=== PATIENT | male | born 1960 | race Caucasian/White ===

== ENCOUNTER 2017-06-17 14:56 | Inpatient (IN) | payer MEDICAID ==
[2017-06-17] MEDS ORDERED: HEPARIN 1000 UNITS/ML 10 ML INJ IV (15:03)
[2017-06-17] MEDS ORDERED: HEPARIN 25000 UNITS/250 ML 250 ML IV (15:03)
[2017-06-17 15:11] LABS: ADD MAN DIFF? NO
[2017-06-17] MEDS: ONDANSETRON 4 MG INJ IV (15:13)
[2017-06-17] MEDS: NITROGLYCERIN (SL) 0.4 MG TAB SL (15:13)
[2017-06-17] MEDS: morphine 4 MG/ML VIAL IV ×2 (15:13→15:30)
[2017-06-17] MEDS: HEPARIN 25000 UNITS/250 ML 250 ML IV (15:14)
[2017-06-17 15:15] LABS: BASOPHIL # 0.1 10^3/ul (0.0-0.1); BASOPHILS % 0.6 % (0.0-2.0); EOSINOPHILS # 0.1 10^3/ul (0.0-0.5); EOSINOPHILS % 0.8 % (0.0-7.0); HEMATOCRIT 52.5 % (42.0-52.0); HEMOGLOBIN 17.1 g/dl (14.0-18.0); LYMPHOCYTES # 3.2 10^3/ul (0.8-2.9); LYMPHOCYTES % 31.2 % (15.0-51.0); MEAN CORPUSCULAR HEMOGLOBIN 29.4 pg (29.0-33.0); MEAN CORPUSCULAR HGB CONC 32.6 g/dl (32.0-37.0); MEAN CORPUSCULAR VOLUME 90.4 fl (82.0-101.0); MEAN PLATELET VOLUME 11.8 fl (7.4-10.4); MONOCYTE # 0.6 10^3/ul (0.3-0.9); MONOCYTES % 6.2 % (0.0-11.0); NEUTROPHIL # 6.2 10^3/ul (1.6-7.5); NEUTROPHILS % 60.5 % (39.0-77.0); PLATELET COUNT 188 10^3/UL (140-415); RED BLOOD COUNT 5.81 10^6/ul (4.70-6.10)
[2017-06-17 15:15] LABS: WHITE BLOOD COUNT 10.3 10^3/ul (4.8-10.8)
[2017-06-17] MEDS: HEPARIN 1000 UNITS/ML 10 ML INJ IV (15:23)
[2017-06-17 15:33] LABS: INR 0.83; PROTIME 11.5 Sec (11.9-14.9); PT RATIO 0.9
[2017-06-17 15:42] LABS: ALANINE AMINOTRANSFERASE 58 IU/L (13-69); ALBUMIN 4.4 g/dl (3.3-4.9); ALBUMIN/GLOBULIN RATIO 1.46; ALKALINE PHOSPHATASE 111 IU/L (42-121); ANION GAP 16 (8-16); ASPARTATE AMINO TRANSFERASE 48 IU/L (15-46); BILIRUBIN,INDIRECT 0.3 mg/dl (0-1.1); BILIRUBIN,TOTAL 0.3 mg/dl (0.2-1.3); BLOOD UREA NITROGEN 17 mg/dl (7-20); CALCIUM 9.2 mg/dl (8.4-10.2); CARBON DIOXIDE 28 mmol/L (21-31); CHLORIDE 103 mmol/L (97-110); CREATININE 1.36 mg/dl (0.61-1.24); GLUCOSE 263 mg/dl (70-220); LIPASE 180 U/L (23-300); POTASSIUM 4.2 mmol/L (3.5-5.1); SODIUM 143 mmol/L (135-144); TOTAL PROTEIN 7.4 g/dl (6.1-8.1)
[2017-06-17] MEDS ORDERED: NITROGLYCERIN (IC) 100 MCG/ML INJ (15:47)
[2017-06-17] MEDS ORDERED: MIDAZOLAM 1 MG/ML 2 ML INJ (15:47)
[2017-06-17] MEDS ORDERED: FENTAnyl 50 MCG/ML VIAL (15:47)
[2017-06-17] MEDS ORDERED: TICAGRELOR 90 MG TABLET (16:05)
[2017-06-17] MEDS ORDERED: BIVALIRUDIN 250MG /NS 50 ML 100 ML IVPB (16:16)
[2017-06-17] MEDS ORDERED: ONDANSETRON 4 MG INJ IV (16:30)
[2017-06-17] MEDS ORDERED: NACL 0.9% 3 ML SYG IV (16:30)
[2017-06-17] MEDS ORDERED: HYDROCODONE/APAP (5/325) TAB PO (16:30)
[2017-06-17] MEDS ORDERED: BISACODYL (EC) 5 MG TAB PO (16:30)
[2017-06-17] MEDS ORDERED: LORAZEPAM 0.5 MG TAB PO (16:30)
[2017-06-17] MEDS ORDERED: ACETAMINOPHEN 325 MG TAB PO (16:30)
[2017-06-17] MEDS ORDERED: morphine 2 MG INJ IV (16:30)
[2017-06-17] MEDS ORDERED: BIVALIRUDIN 250MG /NS 50 ML 50 ML IVPB (16:43)
[2017-06-17] MEDS ORDERED: IOHEXOL 350MG/ML 50 ML BTL (16:43)
[2017-06-17] MEDS ORDERED: IODIXANOL LOCM 100 ML BTL (16:43)
[2017-06-17] MEDS ORDERED: GLUCOSE GEL 15 GRAM TUBE BUCCAL (17:30)
[2017-06-17] MEDS ORDERED: GLUCOSE GEL 15 GRAM TUBE PO ×2 (17:30)
[2017-06-17] MEDS ORDERED: DEXTROSE 50% 50 ML SYRINGE IV ×2 (17:30)
[2017-06-17] MEDS ORDERED: GLUCAGON 1 MG INJ IM (17:30)
[2017-06-17] MEDS: SOD CHLORIDE 0.9% 1,000 ML IV (17:40)
[2017-06-17] MEDS: BIVALIRUDIN 250MG /NS 50 ML 50 ML IVPB ×2 (17:52→19:18)
[2017-06-17] MEDS: INSULIN ASPART [NOVOLOG] 3 ML PEN SC ×3 (19:22→20:58)
[2017-06-17] MEDS: ATORVASTATIN 80 MG TAB PO (20:50)
[2017-06-17] MEDS: TICAGRELOR 90 MG TABLET PO (20:52)
[2017-06-17] MEDS: INSULIN GLARGINE [LANtus] 3 ML PEN SC (20:58)
[2017-06-18] MEDS: ACCU-CHEK XX (01:58)
[2017-06-18 04:52] LABS: ADD MAN DIFF? NO
[2017-06-18] MEDS: PANTOPRAZOLE (EC) 40 MG TAB PO (05:05)
[2017-06-18 05:13] LABS: WHITE BLOOD COUNT 14.7 10^3/ul (4.8-10.8)
[2017-06-18 05:13] LABS: BASOPHILS % 0.3 % (0.0-2.0); EOSINOPHILS # 0.1 10^3/ul (0.0-0.5); EOSINOPHILS % 0.7 % (0.0-7.0); HEMOGLOBIN 14.9 g/dl (14.0-18.0); LYMPHOCYTES # 2.4 10^3/ul (0.8-2.9); LYMPHOCYTES % 16.4 % (15.0-51.0); MEAN CORPUSCULAR HEMOGLOBIN 29.7 pg (29.0-33.0); MEAN CORPUSCULAR HGB CONC 33.1 g/dl (32.0-37.0); MEAN CORPUSCULAR VOLUME 89.8 fl (82.0-101.0); MEAN PLATELET VOLUME 11.7 fl (7.4-10.4); MONOCYTE # 0.8 10^3/ul (0.3-0.9); MONOCYTES % 5.2 % (0.0-11.0); NEUTROPHIL # 11.3 10^3/ul (1.6-7.5); NEUTROPHILS % 76.9 % (39.0-77.0); PLATELET COUNT 161 10^3/UL (140-415); RED BLOOD COUNT 5.01 10^6/ul (4.70-6.10); RED CELL DISTRIBUTION WIDTH 12.8 % (11.5-14.5)
[2017-06-18 05:29] LABS: ALANINE AMINOTRANSFERASE 80 IU/L (13-69); ALBUMIN 3.5 g/dl (3.3-4.9); ALKALINE PHOSPHATASE 80 IU/L (42-121); ANION GAP 12 (8-16); ASPARTATE AMINO TRANSFERASE 184 IU/L (15-46); BILIRUBIN,INDIRECT 0.5 mg/dl (0-1.1); BILIRUBIN,TOTAL 0.5 mg/dl (0.2-1.3); BLOOD UREA NITROGEN 14 mg/dl (7-20); CALCIUM 9.1 mg/dl (8.4-10.2); CARBON DIOXIDE 24 mmol/L (21-31); CHLORIDE 109 mmol/L (97-110); CHOLESTEROL 138 mg/dl (100-200); CREATININE 1.04 mg/dl (0.61-1.24); GLUCOSE 179 mg/dl (70-220); HDL CHOLESTEROL 23 mg/dl (28-71); LDL CHOLESTEROL,CALCULATED 75 mg/dl; MAGNESIUM 1.6 mg/dl (1.7-2.5); SODIUM 141 mmol/L (135-144); TOTAL PROTEIN 6.4 g/dl (6.1-8.1); TRIGLYCERIDES 202 mg/dl (0-149)
[2017-06-18] MEDS ORDERED: MAGNESIUM SULFATE 2 GM/50 ML 50 ML (06:26)
[2017-06-18] MEDS: MAGNESIUM SULFATE 2 GM/50 ML 50 ML IVPB ×2 (06:44→12:45)
[2017-06-18] MEDS: INSULIN ASPART [NOVOLOG] 3 ML PEN SC ×6 (08:45→17:50)
[2017-06-18] MEDS: ASPIRIN 81 MG TAB PO (08:47)
[2017-06-18] MEDS: TICAGRELOR 90 MG TABLET PO ×2 (08:53→19:43)
[2017-06-18] MEDS ORDERED: MAGNESIUM SULFATE 4 GM/100 ML 100 ML IVPB (10:30)
[2017-06-19] MEDS ORDERED: LISINOPRIL 5 MG TAB PO (09:00)
== END 2017-06-18 19:45 | disposition left against medical advice (07) | DRG 247 ==
LOC: MS4 06-18 15:55 → E/R 14:56 → ICU 15:36
PROC: 027034Z Dilation of Coronary Artery, One Artery with Drug-eluting Intraluminal Device, Percutaneous Approach (ICD-10-PCS; principal; 2017-06-17 15:30)
PROC: 4A023N7 Measurement of Cardiac Sampling and Pressure, Left Heart, Percutaneous Approach (ICD-10-PCS; 2017-06-17 15:30)
PROC: B211YZZ Fluoroscopy of Multiple Coronary Arteries using Other Contrast (ICD-10-PCS; 2017-06-17 15:30)
DX: I21.09 ST elevation (STEMI) myocardial infarction involving other coronary artery of anterior wall (principal); E11.9 Type 2 diabetes mellitus without complications; I25.10 Atherosclerotic heart disease of native coronary artery without angina pectoris; E66.9 Obesity, unspecified; Z68.38 Body mass index [BMI] 38.0-38.9, adult; F17.200 Nicotine dependence, unspecified, uncomplicated; Z79.4 Long term (current) use of insulin
CPT/HCPCS: 36415; 71045; 73020; 76705; 80053; 80061; 82962; 83690; 83735; 84484; 85025; 85610; 87081; 93005; 93306; 93454; 96374; 96375; 96376; 99291-25